=== PATIENT | female | born 1965 | race African-American/Black ===

== ENCOUNTER 2018-07-19 12:12 | Emergency (ER) | payer MEDICAID ==
[~2018-07-19] VITALS: Ht 167.6 cm; Wt 135.0 kg
[~2018-07-19 12:12] MED LIST: AMLO5TAB4; HYDROCODON-ACETAMINOPHEN; LISINOPRIL-HCTZ
[2018-07-19 13:30] VITALS: BP 150/96
== END 2018-07-19 14:40 | disposition home or self-care (01) ==
LOC: ER 13:01
DX: J06.9 Acute upper respiratory infection, unspecified (principal); J45.909 Unspecified asthma, uncomplicated; I10 Essential (primary) hypertension; F17.200 Nicotine dependence, unspecified, uncomplicated; Z88.8 Allergy status to other drugs, medicaments and biological substances; Z79.899 Other long term (current) drug therapy
CPT/HCPCS: 99281